=== PATIENT | female | born 1960 | race Caucasian/White ===

== ENCOUNTER 2018-11-10 09:26 | Outpatient (REF) | payer BC, SELFPAY ==
[2018-11-10 13:17] LABS: Cholesterol 195 mg/dL (50-200); HDL Cholesterol 82 mg/dL (40-60); LDL CHOLESTEROL 96 mg/dL (<100); Triglyceride 80 mg/dL (30-150)
== END 2018-11-10 09:46 ==
LOC: NCHCN 09:26
PROVIDERS: PCP Family Medicine; Visit Provider Family Medicine
DX: Z00.00 Encounter for general adult medical examination without abnormal findings (principal); Z13.220 Encounter for screening for lipoid disorders
CPT/HCPCS: 80061; 83721

== ENCOUNTER 2018-11-21 08:44 | Outpatient (REF) | payer BC, SELFPAY ==
[2018-11-22 11:03] LABS: Syphilis Serology (RPR) Negative (Negative)
[2018-11-22 12:20] LABS: Hepatitis B Surface Ag Negative (NEGAT)
[2018-11-22 12:26] LABS: HIV-1/2 Ag & Ab Screen Negative (NEGAT)
[2018-11-22 12:30] LABS: Hepatitis C Ab w Rflx HCV PCR Negative (NEGAT)
== END 2018-11-21 09:04 ==
LOC: NCHCN 08:44
PROVIDERS: PCP Family Medicine; Visit Provider Family Medicine
DX: Z00.00 Encounter for general adult medical examination without abnormal findings (principal); Z11.59 Encounter for screening for other viral diseases; Z11.3 Encounter for screening for infections with a predominantly sexual mode of transmission
CPT/HCPCS: 86803; 87340; 87389; 86592

== ENCOUNTER 2022-01-11 12:34 | Emergency (ER) | payer BC, SELFPAY ==
[2022-01-11 12:44] VITALS: BP 103/57; PULSE 77; RESP 16; TEMP 37.3; O2SAT 98
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
--- NOTE | 2022-01-11 21:54 | NUR.NOTE ---
Animal Bite form faxed to Chair of [employer]. Nursing Note:
== END 2022-01-11 13:32 | disposition home or self-care (01) ==
PROVIDERS: Emergency Provider Physician Assistant; PCP Family Medicine
DX: S81.851A Open bite, right lower leg, initial encounter (principal); W54.0XXA Bitten by dog, initial encounter
CPT/HCPCS: 90471; 99284; 99283